=== PATIENT | female | born 1960 | race Two or more races ===

== ENCOUNTER 2023-04-15 14:13 | Outpatient (CLI) | payer OTHER | END 2023-04-15 14:16 | disposition home or self-care (01) | LOC: SONOGRAMA 14:13 | PROVIDERS: ATTEND Pathology Anatomic Pathology & Clinical Pathology | DX: D34 Benign neoplasm of thyroid gland (principal); E04.2 Nontoxic multinodular goiter; E06.3 Autoimmune thyroiditis ==